=== PATIENT | male | born 1945 | race Caucasian/White ===

== ENCOUNTER 2021-09-12 11:16 | Observation (INO) | payer MEDICARE ==
[~2021-09-12] VITALS: Ht 185.4 cm; Wt 86.0 kg
--- NOTE | 2021-09-12 11:17 | NUR ---
PATIENT TO ROOM VIA EMS STRETCHER.
[2021-09-12 11:49] LABS: GFR > 60 ML/MIN (>=60 (CALC)); GFR FOR AFR.AMER. > 60 ML/MIN (>=60 (CALC))
[2021-09-12 11:50] LABS: HEMOGLOBIN 10.8 g/dl (14.0-18.0); IMMATURE GRANULOCYTES 0.8 % (0.0-5.0); MEAN CELL VOLUME 102.3 fL CALC (80.0-100.0); MEAN CORPUSCULAR HGB 30.7 pG CALC (26.0-32.0); NEUT# 6.64 thou/uL (1.82-7.42); RED BLOOD COUNT 3.52 mill/uL (4.70-6.10); RED CELL DISTRI WIDTH 13.4 % (11.5-15.5)
--- NOTE | 2021-09-12 12:02 | NUR ---
PT'S IV IN RAC INFILTRATED WHILE AT CT-IV D/C AND WARM COMPRESS APPLIED. THIS RN DOWN TO INSERT NEW PIV, UNSUCCESSFUL AFTER 2 TRIES. MARIANA SALMERON WILL ATTEMPT.
[2021-09-12 12:08] LABS: ALBUMIN 3.3 g/dL (3.2-5.0); ALKALINE PHOSPHATASE 119 u/l (38-126); ANION GAP 8 (6-22 (CALC)); BILIRUBIN, TOTAL 0.4 mg/dL (0.0-1.4); BUN 25 mg/dL (8-23); BUN/CREATININE RATIO 30 (12-20 (CALC)); CARBON DIOXIDE 36 mmol/l (22-30); CHLORIDE 100 mmol/l (95-108); CREATININE 0.9 mg/dL (0.7-1.3); GFR > 60 ML/MIN (>=60 (CALC)); GFR FOR AFR.AMER. > 60 ML/MIN (>=60 (CALC)); POTASSIUM 5.1 mmol/l (3.5-5.1); SGOT/AST 43 u/l (19-48); SODIUM 139 mmol/l (137-146); TOTAL PROTEIN 7.1 g/dL (6.3-8.2)
[2021-09-12] MEDS ORDERED: ELIQUIS5 MG PO (12:47)
[2021-09-12] MEDS ORDERED: ZITHROMAX500 MG PO (12:49)
[2021-09-12] MEDS ORDERED: CEFUROXIME250 MG PO (12:50)
[2021-09-12] MEDS ORDERED: LOPRESSOR50 M1 PO (12:50)
[2021-09-12] MEDS ORDERED: PREVAGEN10 MG PO (12:51)
[2021-09-12] MEDS ORDERED: TAMSULOSIN HCL0.4 MG PO (12:52)
[2021-09-12] MEDS ORDERED: B-121000 MC1 PO (12:52)
[2021-09-12] MEDS ORDERED: ROSUVASTATIN CA10 MG PO (12:52)
--- NOTE | 2021-09-12 13:00 | NUR ---
PT RETURNS FROM IMAGING IN STABLE CONDITION. PT APPEARS MORE AWAKE AND BREATHING LESS LABORED. LUNGS WITH WHEEZING TO AUSULTATION BILATERALLY, DIMINISHED IN THE BASES. VSS. PT REMAINS ON 2L/MIN OXYGEN VIA NC. AT THE BEDSIDE. LIGHTS DIMMED FOR COMFORT. WILL CONTINUE TO MONITOR.
--- NOTE | 2021-09-12 13:55 | NUR ---
STROKE ALERT CALLED AND PT TO CT VIA STRETCHER. PER LAST KNOWN WELL WAS 0730 TODAY. SPEECH MORE SLURRED PER AT THIS TIME.
--- NOTE | 2021-09-12 14:00 | NUR ---
HEAD CT BEING DONE
--- NOTE | 2021-09-12 14:05 | NUR ---
PT BEING EVALUATED BY DR SIMMONS AT THIS TIME. DR SIMMONS SCORES PT AT "1" FOR DYSARTHRIA.
--- NOTE | 2021-09-12 14:17 | NUR ---
PT BACK TO ED ROOM 9 VIA STRETCHER. RESPIRATORY IN TO PERFORM NEB TX. PT STABLE AT THIS TIME. AT THE BEDSIDE.
--- NOTE | 2021-09-12 15:10 | NUR ---
PT REFUSED XANAX AT THIS TIME-DR CLEANING AWARE.
--- NOTE | 2021-09-12 15:20 | NUR ---
SB[facility] REPORT CALLED TO [facility] BRUNNER ICU. PT TO GO TO ROOM 5.
--- NOTE | 2021-09-12 15:25 | NUR ---
PT TAKEN BY STRETCHER TO ICU ROOM 5, ZOLL MONITOR ATTACHED. PT IN STABLE CONDITION AT TIME OF ADMISSION. PT'S PAPERWORK HANDED OFF TO MARIANA BRUNNER.
--- NOTE | 2021-09-12 15:45 | NUR ---
PT ARRIVED TO THE FLOOR VIA STRETCHER AND ONE PERSON ASSISTANCE FROM THE ER. FAMILY PRESENT WITH ADMISSION. EXPLANATION OF VISITATION GIVEN TO FAMILY. STATES UNDERSTANDING AND WILL BE COMPLIANT. PT RIGHTS, RESPONSIBILITIES AND CALL LIGHT ADDRESSED. FALL CONTRACT GONE OVER AND SIGNED. BELONGINGS SHEET FILLED OUT AND SIGNED. MED REC AND HISTORY OBTAINED, ASSESSMENT PREFORMED AND DOCUMENTED. CALL LIGHT WITHIN REACH. INSTRUCTED PT TO CALL FOR ASSISTANCE, STATES UNDERSTANDING.
--- NOTE | 2021-09-12 16:33 | NUR ---
MD NOTIFIED OF PT'S ARRIVAL TO THE FLOOR FOR MEDICATION ORDERING, AND DIETARY NEEDS. WILL AWAIT FURTHER ORDERS TO THE POC
[2021-09-12 16:44] VITALS: BP 145/62
--- NOTE | 2021-09-12 19:40 | NUR ---
RESTING IN BED WATCHING TV. ALERT AND ORIENTED X4. FACE SYMMETRICAL SPEECH CLEAR WITH APPROPRIATE RESPONSES TO QUESTIONS. FOLLOWS DIRECTIONS. MOVES ALL EXTREMITIES EQUAL AND WELL. RESP NON-LABORED. USING 02 AT 2 L NC. BREATH SOUNDS CLEAR/DIMINISHED. MOIST COUGH PRESENT. SALINE LOCK INTACT TO RIGHT SHOULDER. BAGGING SALVAGER SHOWS AFIB. DISCUSSED PLAN OF CARE. DENIES NEEDS AT THIS TIME. CALL SEARS IN REACH.
[2021-09-12 21:00] VITALS: BP 152/72
--- NOTE | 2021-09-12 22:00 | NUR ---
RESTING WITHOUT COMPLAINTS. VSS. AFIB ON MONITOR.
[2021-09-12 23:57] VITALS: BP 141/68
--- NOTE | 2021-09-13 00:10 | NUR ---
VSS. AFIB ON MONITOR. RESTING WITHOUT COMPLAINTS.
--- NOTE | 2021-09-13 02:00 | NUR ---
NO CHANGES TO REPORT.
[2021-09-13 04:00] VITALS: BP 134/69
--- NOTE | 2021-09-13 04:00 | NUR ---
NO CHANGES TO REPORT. VSS. AFIB ON MONITOR.
[2021-09-13 06:05] VITALS: BP 159/104
[2021-09-13 06:08] LABS: HEMOGLOBIN 9.2 g/dl (14.0-18.0); IMMATURE GRANULOCYTES 0.3 % (0.0-5.0); MEAN CELL VOLUME 99.7 fL CALC (80.0-100.0); MEAN CORPUSCULAR HGB 30.9 pG CALC (26.0-32.0); NEUT# 10.19 thou/uL (1.82-7.42); RED BLOOD COUNT 2.98 mill/uL (4.70-6.10); RED CELL DISTRI WIDTH 13.5 % (11.5-15.5)
[2021-09-13 06:12] LABS: HEMATOCRIT 29.7 % (39.0-50.0)
[2021-09-13 06:14] LABS: ALKALINE PHOSPHATASE 86 u/l (38-126); ANION GAP 6 (6-22 (CALC)); BILIRUBIN, TOTAL 0.3 mg/dL (0.0-1.4); BUN 24 mg/dL (8-23); BUN/CREATININE RATIO 32 (12-20 (CALC)); CARBON DIOXIDE 36 mmol/l (22-30); CHLORIDE 100 mmol/l (95-108); CREATININE 0.8 mg/dL (0.7-1.3); GFR > 60 ML/MIN (>=60 (CALC)); GFR FOR AFR.AMER. > 60 ML/MIN (>=60 (CALC)); POTASSIUM 4.4 mmol/l (3.5-5.1); SGOT/AST 22 u/l (19-48); SODIUM 137 mmol/l (137-146)
[2021-09-13 06:15] LABS: ALBUMIN 2.5 g/dL (3.2-5.0); TOTAL PROTEIN 5.4 g/dL (6.3-8.2)
--- NOTE | 2021-09-13 07:47 | NUR ---
PT SEEN AWAKE, ALERT, ORIENTED X 2-3. LUNGS CLEAR BUT DIMINISHED, 2 LPM. NO SHORTNESS OF BREATH, SATS 100%.
--- NOTE | 2021-09-13 08:41 | NUR ---
S: CAROLANN HASTINGS is a 75 M who presents with pneumonia. He has a history of lung cancer, hypertension, AFIB, fluid around the heart, and high cholesterol. All medications in patient's chart were reviewed. O: VS: BP 159/40 mmHg, P 86 bpm, RR 20 bpm, T 97.4 F W 86 kg, HT 73 in, Scr= 0.9, CrCl= 79 ml/min A: Blood culture is pending. P: Patient is on Zosyn 3.375 gm IV Q6H. Vancomycin ordered for pharmacy to dose. Start Vancomycin 1 gm IV Q12H. Vancomycin trough is drawn before the 4th dose on 09/14/21 at 1930. Vancomycin goal trough is between 15-20 mcg/ml. Pharmacy will follow and or advise on antibiotics use as needed.
[2021-09-13 10:48] VITALS: BP 163/75
--- NOTE | 2021-09-13 11:00 | NUR ---
Patient medication history is complete, called and spoke to patient's Geovanna for the list of patient's home medication. Patient has NKDA.
[2021-09-13] MEDS ORDERED: PRILOSEC20 MG/CAP PO (11:28)
--- NOTE | 2021-09-13 11:50 | NUR ---
PT TO MRI AND BACK THIS MORNING. AT BEDSIDE NOW, AWAITS DR DAMON TO ROUND AGAIN. NO SLURRED SPEECH NOTED.
[2021-09-13 14:33] VITALS: BP 148/77
--- NOTE | 2021-09-13 16:01 | NUR ---
PT SEEN AT REST IN THE BED, NO DISTRESS. PT DID RECEIVE NEB TREATMENT EARLIER. NO DEFICITS NOTED, NIH 0.
--- NOTE | 2021-09-13 19:20 | NUR ---
RECEIVED CALL FROM ER RECEIVING THAT PATIENT WAS DOWNSTAIRS WITH MEDICATION FOR PATIENT. PATIENT STATES THAT PATIENT HAS EPISODES OF INTRACTABLE HICCUPS AND TAKES CHLORPROMAZINE. SHE BROUGHT 2 PILLS IN A ZIPLOC BAG, I ADVISED HER THAT SHE SHOULD TAKE THE PILLS BACK HOME AND WHEN SHE COMES TO VISIT TOMORROW TO BRING THEM IN THE ORIGINAL PRESCRIPTION BOTTLE WITH LABEL AND WE WOULD SEND TO PHARMACY TO VERIFY WELL SPEAK TO PHYSICIAN TO GET AN ORDER FOR MED. PATIENT STATED "I HOPE YOU CAN STAND HIM ALL NIGHT." ADVISED PATIENT THAT HE IS NOT CURRENTLY EXPERIENCING ANY HICCUPS. INFORMED PATIENT OF WHAT TRANSPIRED AND HE STATED "I DON'T EVEN NEED THAT TONIGHT."
[2021-09-13 20:00] VITALS: BP 154/88
--- NOTE | 2021-09-13 20:00 | NUR ---
RESTING IN BED WATCHING TV. RESP NON-LABORED. USING O2 AT 2 L NC. O2 SAT 95% BREATH SOUNDS CLEAR/DIMINISHED THROUGHOUT. MOIST COUGH PRODUCTIVE OF SMALL AMOUNTS OF THICK YELLOW SECRETIONS. MICHAEL SALINE LOCK INTACT. ANGLEDOZER OPERATOR SHOWS AFIB, HR 90'S. DISCUSSED PLAN OF CARE. DENIES NEEDS AT THIS TIME. CALL SEARS IN REACH.
[2021-09-13 22:00] VITALS: BP 157/70
--- NOTE | 2021-09-13 22:00 | NUR ---
RESTING QUIETLY IN BED. VSS.
--- NOTE | 2021-09-13 23:00 | NUR ---
XANAX 0.25 MG PO FOR SLEEP PER PATIENT REQUEST.
[2021-09-14] VITALS: BP 158/73
--- NOTE | 2021-09-14 | NUR ---
RESTING WITH EYES CLOSED. RESP NON-LABORED. AFIB ON MONITOR.
--- NOTE | 2021-09-14 02:00 | NUR ---
ASLEEP. VSS. RESP NON-LABORED. AFIB ON MONITOR.
[2021-09-14 02:17] VITALS: BP 140/71
[2021-09-14 04:00] VITALS: BP 153/86
--- NOTE | 2021-09-14 04:00 | NUR ---
PATIENT AWAKE ON ROUNDS. RESTING WITHOUT COMPLAINTS. VSS.
[2021-09-14 06:00] VITALS: BP 143/84
[2021-09-14 06:09] LABS: HEMATOCRIT 31.3 % (39.0-50.0); HEMOGLOBIN 9.7 g/dl (14.0-18.0); MEAN CELL VOLUME 99.4 fL CALC (80.0-100.0); MEAN CORPUSCULAR HGB 30.8 pG CALC (26.0-32.0); RED BLOOD COUNT 3.15 mill/uL (4.70-6.10); RED CELL DISTRI WIDTH 13.8 % (11.5-15.5)
[2021-09-14 06:12] LABS: ANION GAP 7 (6-22 (CALC)); BUN 28 mg/dL (8-23); BUN/CREATININE RATIO 33 (12-20 (CALC)); CARBON DIOXIDE 35 mmol/l (22-30); CHLORIDE 98 mmol/l (95-108); CREATININE 0.8 mg/dL (0.7-1.3); GFR > 60 ML/MIN (>=60 (CALC)); GFR FOR AFR.AMER. > 60 ML/MIN (>=60 (CALC)); MAGNESIUM 1.7 mg/dL (1.6-2.3); POTASSIUM 4.4 mmol/l (3.5-5.1); SODIUM 136 mmol/l (137-146)
[2021-09-14 07:00] VITALS: BP 148/82
--- NOTE | 2021-09-14 07:00 | NUR ---
REPORT RECEIVED FROM MARIANA CAMPBELL. PT RESTING PEACEFULLY IN BED. VSS, CALL LIGHT WITHIN REACH. DENIES PAIN, SOB OR DISCOMFORT. INSTRUCTED PT TO CALL FOR ASSISTANCE, STATES UNDERSTANDING.
--- NOTE | 2021-09-14 10:00 | NUR ---
FAMILY AT BS AT THIS TIME. PT OOB AND IN THE CHAIR. PREFORMED ADL'S WITH MINIMAL ASSISTANCE. VSS. ANTICIPATED DISCHARGE. WILL INFORM MD OF FAMILIES ARRIVAL.
[2021-09-14 11:01] VITALS: BP 113/70
[2021-09-14] MEDS ORDERED: AZITHROMYCIN500 MG PO ×2 (11:28→12:04)
[2021-09-14] MEDS ORDERED: OMNICEF300 M1 PO ×2 (11:29→12:04)
--- NOTE | 2021-09-14 12:02 | NUR ---
PT DISCHARGED AT THIS TIME IN STABLE CONDITION, IV SITE REMOVED. DISCHARGE INSTRUCTIONS GIVEN. STATES UNDERSTANDING. FAMILY WITH PT.
--- NOTE | 2021-09-20 14:08 | NUR ---
Pneumonia post dischrge follow up call completed today. Spoke to patient's / She states she does not feel patient is doing well. She thinks he is worse since discharge. No fever or chills, but pt. requires 3L of oxygen. Pt is experiencing extreme fatigue and weakness per . She states pt. has fallen in shower twice. Pt. is extremely resistent to returning to any medical facility, stating he is fine. I contacted Saima, director of casework department, to see if home Health might be a possibility. pablo cordova Jp,maxine Childs;tena referra;/ Jessica velascoes acacia [atoemt woll decline any offers but is willing to speak to case management. No other concerns voiced at this time.
== END 2021-09-14 12:00 | disposition home or self-care (01) ==
LOC: ED 11:16 → ED-I 14:10 → ED 14:37 → ICU 14:38
PROVIDERS: Family Medicine; Hospitalist; ADMIT Internal Medicine; ATTEND Internal Medicine
DX: J18.9 Pneumonia, unspecified organism (principal); R47.81 Slurred speech; J96.21 Acute and chronic respiratory failure with hypoxia; I10 Essential (primary) hypertension; I48.91 Unspecified atrial fibrillation; E78.5 Hyperlipidemia, unspecified; N40.0 Benign prostatic hyperplasia without lower urinary tract symptoms; Z79.01 Long term (current) use of anticoagulants; Z85.118 Personal history of other malignant neoplasm of bronchus and lung; Z90.2 Acquired absence of lung [part of]; Z99.81 Dependence on supplemental oxygen; Z87.891 Personal history of nicotine dependence; Z20.822 Contact with and (suspected) exposure to COVID-19
CPT/HCPCS: Q9967

== ENCOUNTER 2022-10-28 08:58 | Emergency (ER) | payer MEDICARE ==
[~2022-10-28] VITALS: Ht 177.8 cm; Wt 80.0 kg
[2022-10-28] VITALS (15 sets, daily range): BP systolic 129–163; BP diastolic 55–142
[~2022-10-28 08:58] MED LIST: AZITHROMYCIN500 MG PO; B-121000 MC1 PO; CEFUROXIME250 MG PO; ELIQUIS5 MG PO; LOPRESSOR50 M1 PO; OMNICEF300 M1 PO; PREVAGEN10 MG PO; PRILOSEC20 MG/CAP PO; ROSUVASTATIN CA10 MG PO; TAMSULOSIN HCL0.4 MG PO; ZITHROMAX500 MG PO
[2022-10-28] MEDS ORDERED: PREDNISONE20 MG PO (10:15)
[2022-10-28] MEDS ORDERED: CEFUROXIME250 MG PO (10:15)
[2022-10-28 10:16] LABS: BASO% 0.3 % (0-3); EOS% 0.1 % (0-8); IMMATURE GRANULOCYTES 2.2 % (0.0-5.0); LYMPH% 4.1 % (15-41); MEAN CELL VOLUME 97.3 fL CALC (80.0-100.0); MEAN CORPUSCULAR HGB 29.5 pG CALC (26.0-32.0); MEAN CORPUSCULAR HGB CONC 30.4 g/dL CAL (32.0-36.0); MONO% 12.6 % (2-13); NEUT# 9.37 thou/uL (1.82-7.42); NEUT% 80.7 % (42-76); RED BLOOD COUNT 4.37 mill/uL (4.70-6.10); RED CELL DISTRI WIDTH 13.9 % (11.5-15.5)
[2022-10-28 10:17] LABS: HEMATOCRIT 42.5 % (39.0-50.0); HEMOGLOBIN 12.9 g/dl (14.0-18.0)
[2022-10-28] MEDS ORDERED: LEVOFLOXACIN500MG PO (10:19)
[2022-10-28] MEDS ORDERED: ZITHROMAX250 MG PO (10:22)
[2022-10-28] MEDS ORDERED: DOXYCYCLINE HY100 MG PO (10:23)
[2022-10-28] MEDS ORDERED: TEMAZEPAM15 MG PO (10:24)
[2022-10-28] MEDS ORDERED: AMOXICILLIN500 MG PO (10:24)
[2022-10-28] MEDS ORDERED: CRESTOR20 MG PO (10:25)
[2022-10-28 10:28] LABS: ALKALINE PHOSPHATASE 66 u/l (38-126); ANION GAP 6 (6-22 (CALC)); BILIRUBIN, TOTAL 0.4 mg/dL (0.2-1.3); BUN 19 mg/dL (8-23); BUN/CREATININE RATIO 24 (12-20 (CALC)); CARBON DIOXIDE 37 mmol/l (22-30); CHLORIDE 94 mmol/l (95-108); CREATININE 0.8 mg/dL (0.7-1.3); GFR FOR AFR.AMER. > 60 ML/MIN (>=60 (CALC)); GFR OTHER RACES > 60 ML/MIN (>=60 (CALC)); POTASSIUM 4.6 mmol/l (3.5-5.1); SODIUM 133 mmol/l (137-146); TOTAL PROTEIN 6.2 g/dL (6.3-8.2)
[2022-10-28 10:32] LABS: ALBUMIN 3.6 g/dL (3.2-5.0); SGOT/AST 45 u/l (19-48)
[2022-10-28] MEDS ORDERED: MEDDOSEPAK PO (12:25)
[2022-10-28] MEDS ORDERED: VENTOLIN HFA108 MCG PO (12:25)
== END 2022-10-28 12:44 | disposition home or self-care (01) ==
LOC: ED 08:58
PROVIDERS: Family Medicine
DX: J40 Bronchitis, not specified as acute or chronic (principal)